=== PATIENT | female | born 1970 | race Caucasian/White ===

== ENCOUNTER 2018-06-30 12:22 | Emergency (ER) | payer BC ==
--- NOTE | 2018-06-30 12:43 | ED ---
Influenza-Like Illness - HPI Summary HPI Summary: Pt. is a 48 y.o female who presents to the ER for ongoing sinus pressure/pain x 2 weeks. Pt. states she then started with cough, h/a, myalgias over the few days. 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 Pt. is concern she may be positive for the flu and would like tested. She also notes hx of chronic sinusitis but has not needed antibx in a few years. Sxs are mild in severity. No current modifying factors. - History of Current Complaint Chief Complaint: EDGeneral Time Seen by Provider: 06/30/18 12:27 Hx Obtained From: Patient - Allergy/Home Medications Allergies/Adverse Reactions: Allergies Allergy/AdvReac Type Severity Reaction Status Date / Time doxycycline Allergy Hives Verified 02/15/18 10:12 latex Allergy Rash Verified 02/15/18 10:12 metoclopramide [From Reglan] Allergy DYSTONIC Verified 02/15/18 10:12 REACTION PMH/Surg Hx/FS Hx/Imm Hx Previously Healthy: Yes Endocrine/Hematology History: Denies: Hx Diabetes Cardiovascular History: Denies: Hx Hypertension, Hx Pacemaker/ICD History: Denies: Hx Renal Disease Sensory History: Denies: Hx Hearing Aid Psychiatric History: Denies: Hx Panic Disorder - Cancer History Hx Chemotherapy: No Hx Radiation Therapy: No - Surgical History Surgery Procedure, Year, and Place: 3 LEFT KNEE RECONSTRUCTION. C SECTION. 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 SUBOCCIPITAL DECOMPRESSION. BREAST AUGMENTATION Infectious Disease History: No Infectious Disease History: Denies: Traveled Outside the [place] in Last 30 Days - Family History Known Family History: Positive: Non-Contributory - Social History Occupation: Employed Full-time Lives: With Family Alcohol Use: Occasionally Substance Use Type: Reports: None Smoking Status (MU): Never Smoked Tobacco Review of Systems Constitutional: Negative Negative: Fever, Chills Eyes: Negative Positive: Sore Throat, Nasal Discharge Cardiovascular: Negative Positive: Cough. Negative: Shortness Of Breath Gastrointestinal: Negative Negative: Abdominal Pain, Vomiting, Diarrhea Positive: Myalgia Skin: Negative Positive: Headache All Other Systems Reviewed And Are Negative: Yes Physical Exam Triage Information Reviewed: Yes Vital Signs On Initial Exam: Initial Vitals Temp Pulse Resp BP Pulse Ox 98.2 F 63 19 131/85 100 06/30/18 12:25 06/30/18 12:25 06/30/18 12:25 06/30/18 12:25 06/30/18 12:25 Vital Signs Reviewed: Yes Appearance: Positive: Well-Appearing - Pt. sitting on bed in NAD. Skin: Positive: Warm, Dry Head/Face: Positive: Normal Head/Face Inspection Eyes: Positive: Normal, EOMI, KAITY, Conjunctiva Clear ENT: Positive: Pharynx normal, TMs normal, TM red, Sinus tenderness. Negative: Tonsillar swelling, Tonsillar exudate Neck: Positive: Supple, Nontender Respiratory/Lung Sounds: Positive: Clear to Auscultation, Breath Sounds Present. Negative: Rales, Rhonchi, Stridor, Wheezes Cardiovascular: Positive: Normal, RRR Musculoskeletal: Positive: Normal, Strength/ROM Intact Neurological: Positive: Normal, CN Intact II-III Psychiatric: Positive: Affect/Mood Appropriate Diagnostics - Vital Signs Vital Signs Temp Pulse Resp BP Pulse Ox 06/30/18 12:25 98.2 F 63 19 131/85 100 - Laboratory Lab Statement: Any lab studies that have been ordered have been reviewed, and results considered in the medical decision making process. Flu Symptom Course/Dx - Course Course Of Treatment: Pt. presenting with the above sxs. She is afebrile with stable VS. Flu swab is negative. Results discussed. Pt. states that she has already had her doctor send a rx for augmentin for sinusitis. To start today as directed. Tylenol or motrin for pain as directed. To f.u with PCP. - Diagnoses Provider Diagnoses: Sinusitis Discharge - Sign-Out/Discharge Documenting (check all that apply): Patient Departure Patient Received Moderate/Deep Sedation with Procedure: No - Discharge Plan Condition: Good Disposition: HOME Patient Education Materials: Sinusitis (ED) Referrals: Brisa Blount MD [Primary Care Provider] - Additional Instructions: Follow up with PCP Start Augmentin today as directed Tylenol or Motrin for discomfort as directed Return to ER if symptoms change or worsen - Billing Disposition and Condition Condition: GOOD Disposition: Home
[2018-06-30 13:12] LABS: Influenza A Molecular NEGATIVE (Negative); Influenza B Molecular NEGATIVE (Negative)
[2018-06-30 13:27] VITALS: BP 00/00
== END 2018-06-30 13:25 | disposition home or self-care (01) ==
LOC: ED 12:22
DX: J34.9 Unspecified disorder of nose and nasal sinuses (principal); Z88.8 Allergy status to other drugs, medicaments and biological substances; Z88.1 Allergy status to other antibiotic agents; Z91.040 Latex allergy status
CPT/HCPCS: 99281